=== PATIENT | female | born 2000 | race Caucasian/White ===

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

== ENCOUNTER 2022-09-01 09:18 | Emergency (ER) | payer BC ==
[~2022-09-01] VITALS: Ht 167.6 cm; Wt 120.2 kg
[2022-09-01 10:26] LABS: BASO % 0.4 % (0.0-1.0); EOS # 0.1 10*3/uL (0.0-0.4); EOS % 0.6 % (1.0-4.0); LYMPH # 2.7 10*3/uL (1.3-4.4); LYMPH % 33.5 % (27.0-41.0); MEAN CELL VOLUME 90.1 fl (81.0-99.0); MEAN CORPUSCULAR HGB CONC 34.4 g/dl (33.0-37.0); MONO # 0.3 10*3/uL (0.1-1.0); MONO % 4.1 % (3.0-9.0); NEUT % 61.3 % (47.0-73.0); PLATELET COUNT AUTOMATED 404 10*3/uL (130-400); RED BLOOD COUNT 4.77 10*6/uL (4.10-5.10); WHITE BLOOD COUNT 8.1 10*3/uL (4.8-10.8)
[2022-09-01 10:37] LABS: ACT PARTIAL THROMBO TIME 30.8 SECONDS (20.0-32.1)
[2022-09-01 10:52] LABS: ALKALINE PHOSPHATASE 97 U/L (46-116); BETA-HCG, QUANT < 3.0 mIU/mL (0-10); BUN 10 mg/dl (9-23); CHLORIDE 106 mmol/L (98-107); SGPT/ALT 7 U/L (10-49); TOTAL PROTEIN 7.4 gm/dL (6.0-8.0)
[2022-09-01] MEDS ORDERED: PREDNISONE50 MG PO (11:24)
[2022-09-01] MEDS ORDERED: CYCLOBENZAPRINE10 MG PO (11:24)
== END 2022-09-01 11:32 | disposition home or self-care (01) ==
LOC: ED 09:18
PROVIDERS: Emergency Medicine
DX: M54.42 Lumbago with sciatica, left side (principal); J45.909 Unspecified asthma, uncomplicated; Z79.899 Other long term (current) drug therapy

== ENCOUNTER → 2024-10-24 | Outpatient (CLI) | payer BC ==
[~2024-10-24] MED LIST changes: +CYCLOBENZAPRINE10 MG PO; +PREDNISONE50 MG PO
[2024-10-24 10:51] LABS: BASO % 0.4 % (0.0-1.0); EOS % 0.5 % (1.0-4.0); HEMATOCRIT 40.3 % (37.0-47.0); MEAN CELL VOLUME 92.4 fl (81.0-99.0); MEAN CORPUSCULAR HGB CONC 33.5 g/dl (33.0-37.0); MEAN PLATELET VOLUME 8.9 fl (9.6-12.3); MONO # 0.3 10*3/uL (0.1-1.0); MONO % 3.4 % (3.0-9.0); NEUT # 4.6 10*3/uL (2.3-7.9); NEUT % 59.5 % (47.0-73.0); PLATELET COUNT AUTOMATED 389 10*3/uL (130-400); RED BLOOD COUNT 4.36 10*6/uL (4.10-5.10); WHITE BLOOD COUNT 7.7 10*3/uL (4.8-10.8)
[2024-10-24 11:27] LABS: ALKALINE PHOSPHATASE 107 U/L (46-116); BUN 17 mg/dl (9-23); CHLORIDE 107 mmol/L (98-107); CHOLESTEROL 224 mg/dL (<200); FREE T4 1.04 ng/dl (0.89-1.76); LDL CHOLESTEROL 147 mg/dL (9-159); POTASSIUM 4.7 mmol/L (3.4-5.1); SGPT/ALT 8 U/L (5-49); TRIGLYCERIDES 109 mg/dl (<150)
== END | disposition home or self-care (01) ==
LOC: LAB 10:23
PROVIDERS: ATTEND Internal Medicine
DX: E55.9 Vitamin D deficiency, unspecified (principal); E16.1 Other hypoglycemia; R53.83 Other fatigue; E53.9 Vitamin B deficiency, unspecified; F17.290 Nicotine dependence, other tobacco product, uncomplicated